=== PATIENT | female | born 1990 | race Two or more races ===

== ENCOUNTER 2016-10-18 22:47 | Emergency (ER) | payer MEDICAID, MEDICARE ==
[~2016-10-18] VITALS: Ht 167.6 cm; Wt 113.5 kg
[2016-10-19] MEDS ORDERED: IBUPROFEN 600MG TABLET PO STA (00:36)
[2016-10-19] MEDS ORDERED: TETANUS, DIPHTHERIA, PERTUSSIS VAC/PF 0.5ML (>7YR OLD) IM ONE (00:45)
[2016-10-19 00:47] VITALS: BP 130/76
== END 2016-10-19 02:40 | disposition home or self-care (01) ==
LOC: ER 22:47
DX: S91.331A Puncture wound without foreign body, right foot, initial encounter (principal); W22.8XXA Striking against or struck by other objects, initial encounter; Y93.89 Activity, other specified; Y92.89 Other specified places as the place of occurrence of the external cause; Y99.8 Other external cause status; Z98.890 Other specified postprocedural states
CPT/HCPCS: 73630; 81025; 90471; 90715; 99284

== ENCOUNTER 2016-11-28 12:51 | Emergency (ER) | payer MEDICARE ==
[~2016-11-28] VITALS: Ht 167.6 cm; Wt 113.0 kg
[2016-11-28 13:09] VITALS: BP 114/66
== END 2016-11-28 16:29 | disposition left against medical advice (07) ==
LOC: ER 12:51
DX: Z53.21 Procedure and treatment not carried out due to patient leaving prior to being seen by health care provider (principal)

== ENCOUNTER 2017-02-18 00:53 | Emergency (ER) | payer MEDICARE ==
[~2017-02-18] VITALS: Ht 167.6 cm; Wt 105.0 kg
[2017-02-18] MEDS ORDERED: KETOROLAC 30MG/ML VIAL IM ONE (03:15)
[2017-02-18 04:40] VITALS: BP 129/83
== END 2017-02-18 04:41 | disposition home or self-care (01) ==
LOC: ER 00:53
DX: S09.8XXA Other specified injuries of head, initial encounter (principal); S30.0XXA Contusion of lower back and pelvis, initial encounter; S10.83XA Contusion of other specified part of neck, initial encounter; Z98.890 Other specified postprocedural states; V43.52XA Car driver injured in collision with other type car in traffic accident, initial encounter; Y93.89 Activity, other specified; Y92.488 Other paved roadways as the place of occurrence of the external cause
CPT/HCPCS: 72100; 96372; 99284; J1885; Z7610

== ENCOUNTER 2017-04-20 17:59 | Emergency (ER) | payer MEDICARE ==
[~2017-04-20] VITALS: Ht 167.6 cm; Wt 114.0 kg
[2017-04-20 18:05] VITALS: BP 130/88
== END 2017-04-20 21:12 | disposition home or self-care (01) ==
LOC: ER 18:49
DX: S40.862A Insect bite (nonvenomous) of left upper arm, initial encounter (principal); S80.861A Insect bite (nonvenomous), right lower leg, initial encounter; S80.862A Insect bite (nonvenomous), left lower leg, initial encounter; S40.861A Insect bite (nonvenomous) of right upper arm, initial encounter; W57.XXXA Bitten or stung by nonvenomous insect and other nonvenomous arthropods, initial encounter; Y93.89 Activity, other specified; Y92.89 Other specified places as the place of occurrence of the external cause; Y99.8 Other external cause status
CPT/HCPCS: 99283